=== PATIENT | male | born 1985 | race Caucasian/White ===

== ENCOUNTER 2020-03-23 10:59 | Emergency (ER) | payer BC ==
[~2020-03-23] VITALS: Ht 167.6 cm; Wt 90.7 kg
[2020-03-23 10:59] VITALS: BP_SYST 138
--- NOTE | 2020-03-23 10:59 | NUR ---
Placed in room 7. Placed on chicken tender, blood pressure machine and pulse oximeter. To gown for exam. Side rails up.
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
--- NOTE | 2020-03-23 11:10 | NUR ---
ER Dr. Pratt at bedside examining patient.
[2020-03-23] MEDS ORDERED: NS 500 ML IV ONE (11:30)
[2020-03-23] MEDS ORDERED: ASPIRIN 81 MG TAB.CHEW PO ONE (11:30)
[2020-03-23] MEDS ORDERED: ATENOLOL 50 MG TABLET (TENORMIN) PO ONE (11:30)
[2020-03-23 11:34] LABS: BASOPHILS % (AUTO) 0.5 % (0.0-2.0); EOSINOPHILS # (AUTO) 0.1 K/uL (0.0-0.4); EOSINOPHILS % (AUTO) 1.4 % (0.0-4.0); HEMOGLOBIN 16.1 g/dL (14.0-18.0); LYMPHOCYTES # (AUTO) 1.2 K/uL (1.0-5.5); LYMPHOCYTES % (AUTO) 20.8 % (20.5-51.5); MEAN CORPUSCULAR HEMOGLOBIN 32 pg (27-31); MEAN CORPUSCULAR HGB CONC 34 % (32-36); MEAN CORPUSCULAR VOLUME 92 fL (79.0-98.0); MONOCYTES # (AUTO) 0.4 K/uL (0.0-1.0); MONOCYTES % (AUTO) 6.1 % (1.7-9.3); NEUTROPHILS # (AUTO) 4.2 K/uL (1.8-7.7); NEUTROPHILS % (AUTO) 71.2 % (40.0-70.0); PLATELET COUNT (AUTO) 181 K/uL (130-430); RED BLOOD CELL COUNT(AUTO) 5.12 MIL/uL (4.2-6.2); RED CELL DISTRIBUTION WIDTH 12.7 % (9.0-15.0); WHITE BLOOD COUNT (AUTO) 5.9 K/uL (4.8-10.8)
[2020-03-23 11:51] LABS: ANION GAP 8 (5-15); CALCIUM 8.6 mg/dL (8.4-11.0); CHLORIDE 101 mmol/L (98-107); CREATININE 0.72 mg/dL (0.55-1.30); GLUCOSE 136 mg/dL (70-99); POTASSIUM 4.2 mmol/L (3.5-5.1); SODIUM SERUM 134 mmol/L (136-145); UREA NITROGEN, BLOOD 14 mg/dL (8-21)
[2020-03-23 11:54] LABS: GFR AFRICAN AMERICAN 159 mL/min (>90)
[2020-03-23 12:00] LABS: ALANINE AMINOTRANSFERASE 24 U/L (12-78); ALBUMIN 4.2 g/dL (3.4-4.8); ASPARTATE AMINOTRANSFERASE < 5 U/L (10-37); TOTAL BILIRUBIN 1.3 mg/dL (0.0-1.0)
[2020-03-23 12:30] VITALS: BP_SYST 110
--- NOTE | 2020-03-23 12:30 | NUR ---
Patient given written and verbal discharge instructions and verbalizes understanding. ER MD discussed with patient the results and treatment provided. Patient in stable condition. ID arm band removed. Patient educated on pain management and to follow up with PMD. Pain Scale 0/10. Opportunity for questions provided and answered. Medication side effect fact sheet provided.
== END 2020-03-23 12:30 | disposition home or self-care (01) ==
LOC: SED 10:59
DX: F41.9 Anxiety disorder, unspecified (principal); I10 Essential (primary) hypertension; F17.200 Nicotine dependence, unspecified, uncomplicated
CPT/HCPCS: 36415; 71045; 80053; 84484; 85025; 93005; 99285; J7040